=== PATIENT | female | born 1960 | race Caucasian/White ===

== ENCOUNTER 2019-04-25 07:40 | Inpatient (IN) | payer OTHER ==
[2019-04-25] MEDS ORDERED: ONDANSETRON 4 MG INJ IV (11:30)
[2019-04-25] MEDS ORDERED: morphine 2 MG INJ IV (11:30)
[2019-04-25] MEDS ORDERED: GLUCOSE GEL 15 GRAM TUBE BUCCAL (12:00)
[2019-04-25] MEDS ORDERED: GLUCOSE GEL 15 GRAM TUBE PO ×2 (12:00)
[2019-04-25] MEDS ORDERED: DEXTROSE 50% 50 ML SYRINGE IV ×2 (12:00)
[2019-04-25] MEDS ORDERED: GLUCAGON 1 MG INJ IM (12:00)
[2019-04-25] MEDS: LEVOFLOXACIN 500MG/D5W (PMX) 100 ML IVPB (12:22)
[2019-04-25] MEDS: DEXTROSE 5%-0.9% NACL 1,000 ML IV (12:23)
[2019-04-25] MEDS: INSULIN ASPART [NOVOLOG] 3 ML PEN SC ×3 (12:56→20:51)
[2019-04-25] MEDS ORDERED: ALBUTEROL 18 GM INHALER INH (16:30)
[2019-04-25] MEDS: BENAZEPRIL 10 MG TAB PO (18:32)
[2019-04-26] MEDS: INSULIN ASPART [NOVOLOG] 3 ML PEN SC ×6 (00:59→22:13)
[2019-04-26] MEDS: DEXTROSE 5%-0.9% NACL 1,000 ML IV ×3 (02:50→19:12)
[2019-04-26 06:27] LABS: ADD MAN DIFF? NO
[2019-04-26] MEDS: LEVOTHYROXINE 50 MCG TAB PO (06:30)
[2019-04-26] MEDS: PANTOPRAZOLE 40 MG INJ IV (06:30)
[2019-04-26 06:39] LABS: WHITE BLOOD COUNT 6.4 10^3/ul (4.8-10.8)
[2019-04-26 06:39] LABS: BASOPHIL # 0.1 10^3/ul (0.0-0.1); BASOPHILS % 0.8 % (0.0-2.0); EOSINOPHILS # 0.2 10^3/ul (0.0-0.5); EOSINOPHILS % 3.3 % (0.0-7.0); HEMATOCRIT 38.9 % (37.0-47.0); LYMPHOCYTES # 2.7 10^3/ul (0.8-2.9); LYMPHOCYTES % 42.2 % (15.0-51.0); MEAN CORPUSCULAR HEMOGLOBIN 31.9 pg (29.0-33.0); MEAN CORPUSCULAR HGB CONC 33.4 g/dl (32.0-37.0); MEAN CORPUSCULAR VOLUME 95.6 fl (82.0-101.0); MEAN PLATELET VOLUME 10.1 fl (7.4-10.4); MONOCYTE # 0.7 10^3/ul (0.3-0.9); MONOCYTES % 10.2 % (0.0-11.0); NEUTROPHIL # 2.7 10^3/ul (1.6-7.5); NEUTROPHILS % 42.3 % (39.0-77.0); PLATELET COUNT 323 10^3/UL (140-415); RED BLOOD COUNT 4.07 10^6/ul (4.20-5.40); RED CELL DISTRIBUTION WIDTH 12.7 % (11.5-14.5)
[2019-04-26 07:03] LABS: URIC ACID 3.5 mg/dl (3.1-7.9)
[2019-04-26 07:07] LABS: ANION GAP 6 (5-13); BLOOD UREA NITROGEN 8 mg/dl (7-20); CALCIUM 9.1 mg/dl (8.4-10.2); CARBON DIOXIDE 28 mmol/L (21-31); CHLORIDE 107 mmol/L (97-110); CREATININE 0.59 mg/dl (0.44-1.00); Estimated GFR > 60 mL/min (>60); GLUCOSE 194 mg/dl (70-220); POTASSIUM 4.3 mmol/L (3.5-5.1); SODIUM 141 mmol/L (135-144)
[2019-04-26 07:20] LABS: HEMOGLOBIN A1C 10.8 % (0-5.9)
[2019-04-26] MEDS: BENAZEPRIL 10 MG TAB PO (08:19)
[2019-04-26] MEDS: LEVOFLOXACIN 500MG/D5W (PMX) 100 ML IVPB (12:25)
[2019-04-26] MEDS: metroNIDAZOLE 500 MG/NS (PMX) 100 ML IVPB (21:19)
[2019-04-27] MEDS: ACETAMINOPHEN 325 MG TAB PO (01:45)
[2019-04-27] MEDS: metroNIDAZOLE 500 MG/NS (PMX) 100 ML IVPB ×3 (05:49→23:06)
[2019-04-27] MEDS: PANTOPRAZOLE 40 MG INJ IV (05:49)
[2019-04-27 06:05] LABS: ADD MAN DIFF? NO
[2019-04-27 06:10] LABS: BASOPHILS % 0.5 % (0.0-2.0); EOSINOPHILS # 0.2 10^3/ul (0.0-0.5); EOSINOPHILS % 3.4 % (0.0-7.0); HEMATOCRIT 37.8 % (37.0-47.0); HEMOGLOBIN 12.5 g/dl (12.0-16.0); LYMPHOCYTES # 3.1 10^3/ul (0.8-2.9); LYMPHOCYTES % 49.4 % (15.0-51.0); MEAN CORPUSCULAR HEMOGLOBIN 31.8 pg (29.0-33.0); MEAN CORPUSCULAR HGB CONC 33.1 g/dl (32.0-37.0); MEAN CORPUSCULAR VOLUME 96.2 fl (82.0-101.0); MEAN PLATELET VOLUME 10.1 fl (7.4-10.4); MONOCYTE # 0.6 10^3/ul (0.3-0.9); MONOCYTES % 9.9 % (0.0-11.0); NEUTROPHIL # 2.2 10^3/ul (1.6-7.5); NEUTROPHILS % 35.7 % (39.0-77.0); PLATELET COUNT 332 10^3/UL (140-415); RED BLOOD COUNT 3.93 10^6/ul (4.20-5.40); RED CELL DISTRIBUTION WIDTH 12.8 % (11.5-14.5)
[2019-04-27 06:10] LABS: WHITE BLOOD COUNT 6.2 10^3/ul (4.8-10.8)
[2019-04-27 06:31] LABS: ANION GAP 5 (5-13); BLOOD UREA NITROGEN 7 mg/dl (7-20); CALCIUM 8.8 mg/dl (8.4-10.2); CARBON DIOXIDE 27 mmol/L (21-31); CHLORIDE 108 mmol/L (97-110); CREATININE 0.64 mg/dl (0.44-1.00); Estimated GFR > 60 mL/min (>60); GLUCOSE 223 mg/dl (70-220); POTASSIUM 3.9 mmol/L (3.5-5.1); SODIUM 140 mmol/L (135-144)
[2019-04-27] MEDS: LEVOTHYROXINE 50 MCG TAB PO (06:41)
[2019-04-27] MEDS: INSULIN ASPART [NOVOLOG] 3 ML PEN SC ×5 (06:48→20:44)
[2019-04-27] MEDS: BENAZEPRIL 10 MG TAB PO (08:04)
[2019-04-27] MEDS: SOD CHLORIDE 0.45% 1,000 ML IV (12:30)
[2019-04-27] MEDS: LEVOFLOXACIN 500MG/D5W (PMX) 100 ML IVPB (12:30)
[2019-04-27] MEDS: ATORVASTATIN 20 MG TAB PO (20:44)
[2019-04-28] MEDS: SOD CHLORIDE 0.45% 1,000 ML IV ×3 (00:50→14:10)
[2019-04-28] MEDS: LEVOTHYROXINE 50 MCG TAB PO (05:25)
[2019-04-28] MEDS: PANTOPRAZOLE 40 MG INJ IV (05:25)
[2019-04-28] MEDS: metroNIDAZOLE 500 MG/NS (PMX) 100 ML IVPB ×2 (05:25→14:16)
[2019-04-28 06:56] LABS: ADD MAN DIFF? NO
[2019-04-28 06:59] LABS: WHITE BLOOD COUNT 6.3 10^3/ul (4.8-10.8)
[2019-04-28 06:59] LABS: BASOPHILS % 0.6 % (0.0-2.0); EOSINOPHILS # 0.2 10^3/ul (0.0-0.5); EOSINOPHILS % 2.4 % (0.0-7.0); HEMATOCRIT 38.3 % (37.0-47.0); LYMPHOCYTES # 2.7 10^3/ul (0.8-2.9); LYMPHOCYTES % 42.2 % (15.0-51.0); MEAN CORPUSCULAR HEMOGLOBIN 32.2 pg (29.0-33.0); MEAN CORPUSCULAR HGB CONC 33.9 g/dl (32.0-37.0); MEAN CORPUSCULAR VOLUME 94.8 fl (82.0-101.0); MEAN PLATELET VOLUME 9.9 fl (7.4-10.4); MONOCYTE # 0.5 10^3/ul (0.3-0.9); MONOCYTES % 8.3 % (0.0-11.0); NEUTROPHIL # 2.9 10^3/ul (1.6-7.5); NEUTROPHILS % 45.9 % (39.0-77.0); PLATELET COUNT 361 10^3/UL (140-415); RED BLOOD COUNT 4.04 10^6/ul (4.20-5.40); RED CELL DISTRIBUTION WIDTH 12.8 % (11.5-14.5)
[2019-04-28] MEDS: INSULIN ASPART [NOVOLOG] 3 ML PEN SC ×4 (08:34→20:30)
[2019-04-28] MEDS: LEVOFLOXACIN 500MG/D5W (PMX) 100 ML IVPB (12:11)
[2019-04-28] MEDS ORDERED: DOCUSATE SODIUM 100 MG CAP PO (15:00)
[2019-04-28] MEDS: ACCU-CHEK XX ×2 (16:54→20:31)
[2019-04-28] MEDS ORDERED: ACCU-CHEK XX (17:30)
[2019-04-28] MEDS: glyBURIDE 5 MG TAB PO (17:40)
[2019-04-28] MEDS: metFORMIN 500 MG TAB PO (17:40)
[2019-04-28] MEDS: metroNIDAZOLE 500 MG TAB PO (20:31)
[2019-04-28] MEDS: ATORVASTATIN 20 MG TAB PO (20:31)
[2019-04-29] MEDS: LEVOTHYROXINE 50 MCG TAB PO (05:45)
[2019-04-29] MEDS: PANTOPRAZOLE (EC) 40 MG TAB PO (05:45)
[2019-04-29] MEDS: LEVOFLOXACIN 500 MG TAB PO (05:45)
[2019-04-29] MEDS ORDERED: PANTOPRAZOLE (EC) 40 MG TAB PO (06:00)
[2019-04-29] MEDS: ACCU-CHEK XX ×4 (07:00→21:06)
[2019-04-29] MEDS: metroNIDAZOLE 500 MG TAB PO ×3 (08:09→20:46)
[2019-04-29] MEDS: glyBURIDE 5 MG TAB PO ×2 (08:09→17:43)
[2019-04-29] MEDS: ASPIRIN (EC) 81 MG TAB PO (08:09)
[2019-04-29] MEDS: INSULIN ASPART [NOVOLOG] 3 ML PEN SC ×4 (08:13→21:12)
[2019-04-29] MEDS: metFORMIN 500 MG TAB PO ×2 (08:15→17:43)
[2019-04-29] MEDS: ATORVASTATIN 20 MG TAB PO (20:47)
[2019-04-30 05:44] LABS: ADD MAN DIFF? NO
[2019-04-30 05:46] LABS: BASOPHILS % 0.4 % (0.0-2.0); EOSINOPHILS # 0.2 10^3/ul (0.0-0.5); EOSINOPHILS % 1.8 % (0.0-7.0); HEMATOCRIT 41.2 % (37.0-47.0); HEMOGLOBIN 13.7 g/dl (12.0-16.0); LYMPHOCYTES # 3.8 10^3/ul (0.8-2.9); LYMPHOCYTES % 39.2 % (15.0-51.0); MEAN CORPUSCULAR HEMOGLOBIN 31.9 pg (29.0-33.0); MEAN CORPUSCULAR HGB CONC 33.3 g/dl (32.0-37.0); MEAN CORPUSCULAR VOLUME 95.8 fl (82.0-101.0); MONOCYTE # 0.8 10^3/ul (0.3-0.9); MONOCYTES % 7.7 % (0.0-11.0); NEUTROPHIL # 4.9 10^3/ul (1.6-7.5); NEUTROPHILS % 50.1 % (39.0-77.0); PLATELET COUNT 384 10^3/UL (140-415); RED CELL DISTRIBUTION WIDTH 13.2 % (11.5-14.5)
[2019-04-30 05:46] LABS: WHITE BLOOD COUNT 9.8 10^3/ul (4.8-10.8)
[2019-04-30] MEDS: LEVOTHYROXINE 50 MCG TAB PO (05:54)
[2019-04-30] MEDS: LEVOFLOXACIN 500 MG TAB PO (05:54)
[2019-04-30] MEDS: PANTOPRAZOLE (EC) 40 MG TAB PO (05:55)
[2019-04-30 06:08] LABS: ANION GAP 8 (5-13); BLOOD UREA NITROGEN 15 mg/dl (7-20); CALCIUM 9.4 mg/dl (8.4-10.2); CARBON DIOXIDE 27 mmol/L (21-31); CHLORIDE 107 mmol/L (97-110); CREATININE 0.69 mg/dl (0.44-1.00); Estimated GFR > 60 mL/min (>60); GLUCOSE 121 mg/dl (70-220); POTASSIUM 4.6 mmol/L (3.5-5.1); SODIUM 142 mmol/L (135-144)
[2019-04-30 06:10] LABS: PHOSPHORUS 4.2 mg/dl (2.5-4.9)
[2019-04-30 06:10] LABS: MAGNESIUM 1.9 mg/dl (1.7-2.5)
[2019-04-30] MEDS: ACCU-CHEK XX ×3 (07:00→17:30)
[2019-04-30] MEDS: INSULIN ASPART [NOVOLOG] 3 ML PEN SC ×3 (07:00→17:30)
[2019-04-30] MEDS: metroNIDAZOLE 500 MG TAB PO ×2 (08:00→12:13)
[2019-04-30] MEDS: glyBURIDE 5 MG TAB PO ×2 (08:00→18:00)
[2019-04-30] MEDS: metFORMIN 500 MG TAB PO ×2 (08:00→18:00)
[2019-04-30] MEDS: ASPIRIN (EC) 81 MG TAB PO (08:03)
== END 2019-04-30 18:55 | disposition home or self-care (01) | DRG 392 ==
LOC: 2NE 07:40
PROVIDERS: Internal Medicine Nephrology
DX: K57.32 Diverticulitis of large intestine without perforation or abscess without bleeding (principal); E66.9 Obesity, unspecified; K76.0 Fatty (change of) liver, not elsewhere classified; E03.9 Hypothyroidism, unspecified; E11.9 Type 2 diabetes mellitus without complications; I10 Essential (primary) hypertension; N20.0 Calculus of kidney; Z68.27 Body mass index [BMI] 27.0-27.9, adult
CPT/HCPCS: 80048; 82962; 83036; 83735; 84100; 84443; 84560; 85025

== ENCOUNTER 2019-06-02 06:30 | Day surgery (SDC) | payer OTHER ==
[2019-06-02] MEDS ORDERED: PROPOFOL 20 ML (07:38)
[2019-06-02] MEDS ORDERED: FENTAnyl 50 MCG/ML VIAL (07:38)
== END 2019-06-02 11:00 | disposition home or self-care (01) ==
LOC: GIL 06:30
DX: Z12.11 Encounter for screening for malignant neoplasm of colon (principal); K29.50 Unspecified chronic gastritis without bleeding; K57.30 Diverticulosis of large intestine without perforation or abscess without bleeding; K64.4 Residual hemorrhoidal skin tags; I10 Essential (primary) hypertension; E11.9 Type 2 diabetes mellitus without complications; Z79.82 Long term (current) use of aspirin; Z79.84 Long term (current) use of oral hypoglycemic drugs
CPT/HCPCS: 43239; 82962; 88305; 88312